=== PATIENT | male | born 1970 | race Caucasian/White ===

== ENCOUNTER 2023-09-12 09:18 | Day surgery (SDC) | payer OTHER ==
[2023-09-07 13:26] VITALS: BMI 36.2
[2023-09-12] MEDS ORDERED: Oxymetazoline HCl 0.05% (30 ML BOT) ONE (10:09)
[2023-09-12] MEDS ORDERED: Midazolam HCl 2 mg/2 ml Vial ONE (10:42)
[2023-09-12] MEDS ORDERED: Scopolamine 1 mg/72 hour Patch ONE (10:42)
[2023-09-12] MEDS ORDERED: Lidocaine 1% (PF) 30 ML VIAL ONE (11:21)
[2023-09-12] MEDS ORDERED: Famotidine/PF 20 mg/2ml Vial ONE (11:25)
[2023-09-12] MEDS ORDERED: fentaNYL 50 mcg/mL 1 mL Vial ONE (11:25)
[2023-09-12] MEDS ORDERED: Ketorolac Tromethamine 30 MG/ML VIAL ONE (11:33)
[2023-09-12] MEDS ORDERED: Lidocaine 1% PF 5 ML VIAL ONE (11:33)
[2023-09-12] MEDS ORDERED: PROPOFOL 200 MG/20 ML VIAL ONE (11:33)
[2023-09-12] MEDS ORDERED: Metoclopramide HCl 10 MG/2 ML VIAL ONE (11:33)
[2023-09-12] MEDS ORDERED: Dexamethasone 20 MG/5 ML VIAL ONE (11:33)
[2023-09-12] MEDS ORDERED: methylPREDNISolone Acetate 40 mg/ml Vial ONE (11:49)
[2023-09-12] MEDS ORDERED: Ferric Subsulfate 8 ML TOPICAL SOLN ONE (11:49)
[2023-09-12] MEDS ORDERED: Fentanyl 250 MCG/5 ML VIAL ONE (12:49)
[2023-09-12] MEDS ORDERED: Ondansetron ODT 4 MG TAB ONE (15:16)
== END 2023-09-12 15:59 | disposition home or self-care (01) ==
LOC: SDC 09:18
PROVIDERS: ATTEND Otolaryngology Plastic Surgery within the Head & Neck
PROC: 09BM8ZZ Excision of Nasal Septum, Via Natural or Artificial Opening Endoscopic (ICD-10-PCS; principal; 2023-09-12)
PROC: 099Q8ZZ Drainage of Right Maxillary Sinus, Via Natural or Artificial Opening Endoscopic (ICD-10-PCS; principal; 2023-09-12)
PROC: 09TL8ZZ Resection of Nasal Turbinate, Via Natural or Artificial Opening Endoscopic (ICD-10-PCS; principal; 2023-09-12)
PROC: 099R8ZZ Drainage of Left Maxillary Sinus, Via Natural or Artificial Opening Endoscopic (ICD-10-PCS; principal; 2023-09-12)
PROC: 099U8ZZ Drainage of Right Ethmoid Sinus, Via Natural or Artificial Opening Endoscopic (ICD-10-PCS; principal; 2023-09-12)
PROC: 099T8ZZ Drainage of Left Frontal Sinus, Via Natural or Artificial Opening Endoscopic (ICD-10-PCS; principal; 2023-09-12)
PROC: 099S8ZZ Drainage of Right Frontal Sinus, Via Natural or Artificial Opening Endoscopic (ICD-10-PCS; principal; 2023-09-12)
PROC: 099V8ZZ Drainage of Left Ethmoid Sinus, Via Natural or Artificial Opening Endoscopic (ICD-10-PCS; 2023-09-12)
DX: J35.3 Hypertrophy of tonsils with hypertrophy of adenoids (principal); J35.01 Chronic tonsillitis; K13.79 Other lesions of oral mucosa; R53.83 Other fatigue; J32.2 Chronic ethmoidal sinusitis; J34.2 Deviated nasal septum; J34.3 Hypertrophy of nasal turbinates; J32.0 Chronic maxillary sinusitis; J32.1 Chronic frontal sinusitis; G47.33 Obstructive sleep apnea (adult) (pediatric); E78.00 Pure hypercholesterolemia, unspecified; I10 Essential (primary) hypertension; Z88.0 Allergy status to penicillin; Z88.2 Allergy status to sulfonamides; Z79.899 Other long term (current) drug therapy
CPT/HCPCS: 88304; 93005; 93010; J1030; J2001; J2250; J3010; Q0162; S0028